=== PATIENT | male | born 2000 | race Caucasian/White ===

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

== ENCOUNTER 2022-11-23 21:20 | Emergency (ER) | payer OTHER ==
[~2022-11-23] VITALS: Ht 182.9 cm; Wt 104.3 kg
[2022-11-23 21:55] VITALS: BP 130/73; PULSE 80; RESP 16; TEMP 98.2; O2SAT 97
--- NOTE | 2022-11-23 21:58 | NUR ---
TO LOBBY A/W BED AMBULATORY
[2022-11-23 22:00] VITALS: BP 130/73; PULSE 80; RESP 16; TEMP 98.2; O2SAT 97
--- NOTE | 2022-11-23 23:08 | NUR ---
SEEN AND EXAMINED BY ELVIN
[2022-11-23] MEDS ORDERED: cephALEXin 500 MG CAP PO ONE (23:10)
[2022-11-23] MEDS ORDERED: cefTRIAXone 500 MG in LIDOCAINE MPF 1% 1 ML IM ONE (23:10)
[2022-11-23] MEDS ORDERED: DOXYCYCLINE 100 MG CAP PO ONE (23:10)
[2022-11-23] MEDS ORDERED: DOXY-690 PO (23:13)
[2022-11-23] MEDS ORDERED: CEPH-588 PO (23:13)
[2022-11-23] MEDS ORDERED: PYR100 PO (23:13)
[2022-11-23] MEDS ORDERED: cefTRIAXone 500 MG VIAL ONE (23:24)
[2022-11-23] MEDS ORDERED: LIDOCAINE MPF 1% 5 ML ONE (23:24)
--- NOTE | 2022-11-23 23:47 | NUR ---
Patient discharged with v/s stable. Written and verbal after care instructions given and explained. Patient verbalized understanding. Ambulatory with steady gait. All questions addressed prior to discharge. Advised to follow up with PMD.
== END 2022-11-23 23:47 | disposition home or self-care (01) ==
LOC: MED 21:20
DX: N39.0 Urinary tract infection, site not specified (principal); Z79.899 Other long term (current) drug therapy; Z79.2 Long term (current) use of antibiotics
CPT/HCPCS: 81002; 87491; 96372; 99283; J0696; J2001

== ENCOUNTER 2023-10-21 18:23 | Emergency (ER) | payer OTHER ==
[~2023-10-21] VITALS: Ht 182.9 cm; Wt 85.3 kg
[~2023-10-21 18:23] MED LIST: CEPH-588 PO; DOXY-690 PO; PYR100 PO
[2023-10-21 18:33] VITALS: BP 116/59; PULSE 81; RESP 18; TEMP 98.9; O2SAT 97
[2023-10-21 19:09] LABS: APPEARANCE,URINE CLEAR (CLEAR); BILIRUBIN,URINE NEGATIVE (NEGATIVE); BLOOD, URINE TRACE-I (NEGATIVE); COLOR,URINE YELLOW (YELLOW); LEUKOCYTE ESTERASE ,URINE NEGATIVE (NEGATIVE); NITRITE, URINE NEGATIVE (NEGATIVE); PROTEIN,URINE NEGATIVE (NEGATIVE); UGLUCOSE NEGATIVE (NEGATIVE); UROBILINOGEN,URINE 0.2 EU/dL (0.2 - 1)
[2023-10-21] MEDS: KETOROLAC 60 MG/2 ML VIAL IM ONE (19:10)
[2023-10-21] MEDS ORDERED: IBUP-2213 PO (19:11)
[2023-10-21] MEDS ORDERED: DOXY-690 PO (19:11)
[2023-10-21 19:13] LABS: BASOPHILS % (AUTO) 0.6 % (0.0-2.0); EOSINOPHILS # (AUTO) 0.2 K/uL (0-0.4); EOSINOPHILS % (AUTO) 3.6 % (0.0-4.0); HEMATOCRIT 44.7 % (36-52); LYMPHOCYTES # (AUTO) 1.8 K/uL (2.0-11.5); MEAN CORPUSCULAR HEMOGLOBIN 31 pg (27-31); MEAN CORPUSCULAR HGB CONC 34 g/dL (33-37); MEAN CORPUSCULAR VOLUME 91.9 fL (80-94); MONOCYTES # (AUTO) 0.7 K/uL (0.8-1.0); MONOCYTES % (AUTO) 11.3 % (1.7-9.3); NEUTROPHILS # (AUTO) 3.7 K/uL (1.8-7.7); NEUTROPHILS % (AUTO) 56.5 % (42.2-75.2); PLATELET COUNT (AUTO) 183 K/uL (140-450); RED BLOOD CELL COUNT(AUTO) 4.86 MIL/uL (4.20-6.10); RED CELL DISTRIBUTION WIDTH 13.2 % (11.6-13.7); WHITE BLOOD COUNT (AUTO) 6.5 K/uL (4.8-10.8)
[2023-10-21 19:23] LABS: CARBON DIOXIDE 27.5 mmol/L (21-32); CREATININE 0.9 mg/dL (0.6-1.3); POTASSIUM 3.5 mmol/L (3.5-5.1)
[2023-10-21] MEDS ORDERED: cefTRIAXone 500 MG VIAL ONE (19:33)
[2023-10-21] MEDS ORDERED: LIDOCAINE MPF 1% 5 ML ONE (19:33)
[2023-10-21] MEDS: cefTRIAXone 500 MG in LIDOCAINE MPF 1% 1 ML IM ONE (19:38)
[2023-10-21 19:40] VITALS: BP 116/59; PULSE 81; RESP 18; TEMP 98.9; O2SAT 97
== END 2023-10-21 19:40 | disposition home or self-care (01) ==
LOC: MED 18:23
DX: N34.2 Other urethritis (principal); Z79.1 Long term (current) use of non-steroidal anti-inflammatories (NSAID); Z79.2 Long term (current) use of antibiotics; Z79.899 Other long term (current) drug therapy
CPT/HCPCS: 36415; 80048; 81003; 85025; 96372; 99284; J0696; J1885; J2001

== ENCOUNTER 2023-10-31 10:56 | Emergency (ER) | payer OTHER ==
[~2023-10-31] VITALS: Ht 185.4 cm; Wt 86.9 kg
[~2023-10-31 10:56] MED LIST changes: +IBUP-2213 PO
[2023-10-31 10:58] VITALS: BP 123/65; PULSE 71; RESP 18; TEMP 98.1; O2SAT 98
[2023-10-31 11:28] VITALS: BP 123/65; PULSE 71; RESP 18; TEMP 98.1; O2SAT 98
[2023-10-31 11:30] LABS: BASOPHILS # (AUTO) 0.1 K/uL (0.00-0.22); BASOPHILS % (AUTO) 1.2 % (0.0-2.0); EOSINOPHILS # (AUTO) 0.1 K/uL (0-0.4); EOSINOPHILS % (AUTO) 2.4 % (0.0-4.0); HEMATOCRIT 43.9 % (36-52); HEMOGLOBIN 14.8 g/dL (12.0-18.0); LYMPHOCYTES # (AUTO) 1.6 K/uL (2.0-11.5); LYMPHOCYTES % (AUTO) 28.9 % (20.5-51.1); MEAN CORPUSCULAR HEMOGLOBIN 31 pg (27-31); MEAN CORPUSCULAR HGB CONC 34 g/dL (33-37); MEAN CORPUSCULAR VOLUME 92.2 fL (80-94); MONOCYTES # (AUTO) 0.4 K/uL (0.8-1.0); MONOCYTES % (AUTO) 6.3 % (1.7-9.3); NEUTROPHILS # (AUTO) 3.4 K/uL (1.8-7.7); NEUTROPHILS % (AUTO) 61.2 % (42.2-75.2); PLATELET COUNT (AUTO) 165 K/uL (140-450); RED BLOOD CELL COUNT(AUTO) 4.76 MIL/uL (4.20-6.10); RED CELL DISTRIBUTION WIDTH 13.2 % (11.6-13.7); WHITE BLOOD COUNT (AUTO) 5.6 K/uL (4.8-10.8)
[2023-10-31 11:40] LABS: ANION GAP 9.1 (8-16); BILIRUBIN,URINE NEGATIVE (NEGATIVE); BLOOD, URINE TRACE-I (NEGATIVE); CALCIUM 8.4 mg/dL (8.5-10.1); CARBON DIOXIDE 26.9 mmol/L (21-32); COLOR,URINE YELLOW (YELLOW); CREATININE 0.8 mg/dL (0.6-1.3); LEUKOCYTE ESTERASE ,URINE NEGATIVE (NEGATIVE); NITRITE, URINE NEGATIVE (NEGATIVE); PH,URINE 5.5 (5.0-9.0); PROTEIN,URINE NEGATIVE (NEGATIVE); UGLUCOSE NEGATIVE (NEGATIVE); UROBILINOGEN,URINE 0.2 EU/dL (0.2 - 1)
[2023-10-31 11:42] LABS: APPEARANCE,URINE HAZY (CLEAR)
[2023-10-31 11:52] LABS: BACTERIA,URINE None Seen /HPF (None Seen); MUCUS,URINE None Seen /LPF (None Seen); RBC,URINE 0-5 /HPF (0-5); SQUAMOUS EPITHELIAL CELL,UR None Seen /LPF (0-3 (FEW)); WBC,URINE NONE SEEN /HPF (0-5)
[2023-10-31] MEDS ORDERED: IBUP-2213 PO (12:32)
== END 2023-10-31 13:20 | disposition home or self-care (01) ==
LOC: MED 10:56
DX: N50.812 Left testicular pain (principal); N50.811 Right testicular pain; R03.0 Elevated blood-pressure reading, without diagnosis of hypertension; F12.90 Cannabis use, unspecified, uncomplicated; Z79.1 Long term (current) use of non-steroidal anti-inflammatories (NSAID); Z79.2 Long term (current) use of antibiotics; Z79.899 Other long term (current) drug therapy
CPT/HCPCS: 36415; 76870; 80048; 81001; 85025; 86592; 87491; 99284; Q0092

== ENCOUNTER 2024-01-16 09:35 | Emergency (ER) | payer OTHER ==
[~2024-01-16] VITALS: Ht 208.3 cm; Wt 83.9 kg
[2024-01-16 09:38] VITALS: BP 129/65; PULSE 79; RESP 15; TEMP 98.8; O2SAT 96
[2024-01-16 10:29] LABS: BASOPHILS % (AUTO) 0.7 % (0.0-2.0); EOSINOPHILS # (AUTO) 0.2 K/uL (0-0.4); EOSINOPHILS % (AUTO) 4.2 % (0.0-4.0); HEMATOCRIT 44.4 % (36-52); HEMOGLOBIN 15.2 g/dL (12.0-18.0); LYMPHOCYTES # (AUTO) 1.3 K/uL (2.0-11.5); LYMPHOCYTES % (AUTO) 25.6 % (20.5-51.1); MEAN CORPUSCULAR HEMOGLOBIN 31 pg (27-31); MEAN CORPUSCULAR HGB CONC 34 g/dL (33-37); MEAN CORPUSCULAR VOLUME 91.8 fL (80-94); MONOCYTES # (AUTO) 0.4 K/uL (0.8-1.0); MONOCYTES % (AUTO) 7.5 % (1.7-9.3); NEUTROPHILS # (AUTO) 3.2 K/uL (1.8-7.7); PLATELET COUNT (AUTO) 164 K/uL (140-450); RED BLOOD CELL COUNT(AUTO) 4.84 MIL/uL (4.20-6.10); RED CELL DISTRIBUTION WIDTH 13.4 % (11.6-13.7); WHITE BLOOD COUNT (AUTO) 5.2 K/uL (4.8-10.8)
[2024-01-16 10:45] LABS: ANION GAP 8.1 (8-16); CALCIUM 8.9 mg/dL (8.5-10.1); CARBON DIOXIDE 30.6 mmol/L (21-32); CREATININE 0.8 mg/dL (0.6-1.3); POTASSIUM 4.7 mmol/L (3.5-5.1)
[2024-01-16 10:52] LABS: ALBUMIN 4.3 g/dL (3.4-5.0); BILIRUBIN,DIRECT 0.2 mg/dL (0.0-0.3); TOTAL BILIRUBIN 10.5 mg/dL (0.0-1.0)
[2024-01-16 11:43] VITALS: BP 129/65; PULSE 79; RESP 16; TEMP 98.8; O2SAT 96
== END 2024-01-16 11:45 | disposition home or self-care (01) ==
LOC: MED 09:35
DX: R17 Unspecified jaundice (principal); R03.0 Elevated blood-pressure reading, without diagnosis of hypertension; F12.90 Cannabis use, unspecified, uncomplicated; Z79.899 Other long term (current) drug therapy
CPT/HCPCS: 36415; 80048; 80076; 83690; 85025; 99283